=== PATIENT | female | born 1950 | race Two or more races ===

== ENCOUNTER → 2018-02-05 | Outpatient (CLI) | payer OTHER ==
[~2018-02-05] MED LIST: GILTUSS TR TAB1 EACH PO; METFORMIN HCL500 MG; SIMVASTATIN10 MG; SYNTHROID50 MCG
== END | disposition home or self-care (01) ==
LOC: LAB 09:21
DX: G90.3 Multi-system degeneration of the autonomic nervous system (principal); E03.8 Other specified hypothyroidism; E21.2 Other hyperparathyroidism

== ENCOUNTER 2018-02-19 08:51 | Outpatient (CLI) | payer OTHER | END 2018-02-19 08:59 | disposition home or self-care (01) | LOC: RAD 08:51 | DX: I11.9 Hypertensive heart disease without heart failure (principal); E11.8 Type 2 diabetes mellitus with unspecified complications; E05.10 Thyrotoxicosis with toxic single thyroid nodule without thyrotoxic crisis or storm; E78.4 Other hyperlipidemia; N39.0 Urinary tract infection, site not specified; Z12.11 Encounter for screening for malignant neoplasm of colon ==

== ENCOUNTER 2018-02-22 10:06 | Outpatient (CLI) | payer OTHER | END 2018-02-22 10:10 | disposition home or self-care (01) | LOC: LAB 10:06 | DX: I11.9 Hypertensive heart disease without heart failure (principal); E11.8 Type 2 diabetes mellitus with unspecified complications; E05.10 Thyrotoxicosis with toxic single thyroid nodule without thyrotoxic crisis or storm; E78.4 Other hyperlipidemia; N39.0 Urinary tract infection, site not specified; Z12.11 Encounter for screening for malignant neoplasm of colon ==

== ENCOUNTER 2018-02-26 08:20 | Outpatient (CLI) | payer OTHER | END 2018-02-26 08:33 | disposition home or self-care (01) | LOC: MAMO-SONO 08:20 | DX: Z12.31 Encounter for screening mammogram for malignant neoplasm of breast (principal); Z87.898 Personal history of other specified conditions; N60.29 Fibroadenosis of unspecified breast ==

== ENCOUNTER 2018-08-08 08:40 | Outpatient (CLI) | payer OTHER | END 2018-08-08 09:08 | disposition home or self-care (01) | LOC: RAD 08:40 → LAB 08:40 | DX: I11.9 Hypertensive heart disease without heart failure (principal); E11.8 Type 2 diabetes mellitus with unspecified complications; N39.0 Urinary tract infection, site not specified; M17.0 Bilateral primary osteoarthritis of knee; M18.0 Bilateral primary osteoarthritis of first carpometacarpal joints; E78.49 Other hyperlipidemia ==

== ENCOUNTER 2018-12-24 08:12 | Outpatient (CLI) | payer OTHER | END 2018-12-24 15:00 | disposition home or self-care (01) | LOC: LAB 08:12 | DX: I11.9 Hypertensive heart disease without heart failure (principal); E11.8 Type 2 diabetes mellitus with unspecified complications; E78.49 Other hyperlipidemia; E05.10 Thyrotoxicosis with toxic single thyroid nodule without thyrotoxic crisis or storm; N39.0 Urinary tract infection, site not specified; Z12.11 Encounter for screening for malignant neoplasm of colon ==

== ENCOUNTER 2018-12-25 10:20 | Outpatient (CLI) | payer OTHER | END 2018-12-25 13:01 | disposition home or self-care (01) | LOC: LAB 10:20 | DX: I11.9 Hypertensive heart disease without heart failure (principal); E11.8 Type 2 diabetes mellitus with unspecified complications; E05.10 Thyrotoxicosis with toxic single thyroid nodule without thyrotoxic crisis or storm; N39.0 Urinary tract infection, site not specified; Z12.11 Encounter for screening for malignant neoplasm of colon; E78.49 Other hyperlipidemia ==

== ENCOUNTER 2019-04-18 10:16 | Outpatient (CLI) | payer OTHER | END 2019-04-18 10:23 | disposition home or self-care (01) | LOC: NUCLEAR 10:16 | DX: R55 Syncope and collapse (principal) ==

== ENCOUNTER 2019-07-29 10:03 | Outpatient (CLI) | payer OTHER | END 2019-07-29 12:28 | disposition home or self-care (01) | LOC: LAB 10:03 | DX: I10 Essential (primary) hypertension (principal); E11.69 Type 2 diabetes mellitus with other specified complication; E78.49 Other hyperlipidemia; E03.1 Congenital hypothyroidism without goiter; N39.0 Urinary tract infection, site not specified ==

== ENCOUNTER 2019-08-07 07:16 | Outpatient (CLI) | payer OTHER | END 2019-08-07 07:21 | disposition home or self-care (01) | LOC: SONOGRAMA 07:16 → MAMO-SONO 07:45 | DX: E11.22 Type 2 diabetes mellitus with diabetic chronic kidney disease (principal) ==

== ENCOUNTER 2019-10-18 11:19 | Emergency (ER) | payer OTHER ==
[~2019-10-18] VITALS: Ht 160 cm; Wt 74.4 kg
== END 2019-10-18 17:39 | disposition home or self-care (01) ==
LOC: ER 11:19
DX: S01.121A Laceration with foreign body of right eyelid and periocular area, initial encounter (principal); R55 Syncope and collapse; W18.2XXA Fall in (into) shower or empty bathtub, initial encounter; Y93.E8 Activity, other personal hygiene; Y92.091 Bathroom in other non-institutional residence as the place of occurrence of the external cause; Y99.8 Other external cause status

== ENCOUNTER 2019-11-06 09:19 | Outpatient (CLI) | payer OTHER | END 2019-11-06 15:00 | disposition home or self-care (01) | LOC: LAB 09:19 | DX: I11.9 Hypertensive heart disease without heart failure (principal); E11.69 Type 2 diabetes mellitus with other specified complication; E78.49 Other hyperlipidemia; E05.10 Thyrotoxicosis with toxic single thyroid nodule without thyrotoxic crisis or storm; N39.0 Urinary tract infection, site not specified; Z12.11 Encounter for screening for malignant neoplasm of colon ==

== ENCOUNTER → 2020-04-13 10:30 | Outpatient (CLI) | payer OTHER | END | disposition home or self-care (01) | LOC: LAB 10:30 | PROVIDERS: ATTEND Psychiatry & Neurology Clinical Neurophysiology | DX: I95.1 Orthostatic hypotension (principal) ==

== ENCOUNTER 2020-07-13 11:00 | Outpatient (CLI) | payer OTHER | END 2020-07-13 11:02 | disposition home or self-care (01) | LOC: RAD 11:00 | PROVIDERS: ATTEND Internal Medicine | DX: M06.211 Rheumatoid bursitis, right shoulder (principal); I11.9 Hypertensive heart disease without heart failure ==

== ENCOUNTER 2020-11-04 06:24 | Outpatient (CLI) | payer OTHER | END 2020-11-04 06:33 | disposition home or self-care (01) | LOC: LAB 06:24 | PROVIDERS: ATTEND Internal Medicine | DX: I12.0 Hypertensive chronic kidney disease with stage 5 chronic kidney disease or end stage renal disease (principal); I10 Essential (primary) hypertension; E11.69 Type 2 diabetes mellitus with other specified complication; E78.89 Other lipoprotein metabolism disorders; E05.10 Thyrotoxicosis with toxic single thyroid nodule without thyrotoxic crisis or storm; N39.0 Urinary tract infection, site not specified; Z12.11 Encounter for screening for malignant neoplasm of colon ==

== ENCOUNTER 2020-11-05 07:16 | Outpatient (CLI) | payer OTHER | END 2020-11-05 15:00 | disposition home or self-care (01) | LOC: LAB 07:16 | PROVIDERS: ATTEND Internal Medicine | DX: I10 Essential (primary) hypertension (principal); N39.0 Urinary tract infection, site not specified; E11.69 Type 2 diabetes mellitus with other specified complication; E78.89 Other lipoprotein metabolism disorders; N39.8 Other specified disorders of urinary system; Z12.11 Encounter for screening for malignant neoplasm of colon; E05.10 Thyrotoxicosis with toxic single thyroid nodule without thyrotoxic crisis or storm ==

== ENCOUNTER 2020-11-17 08:19 | Outpatient (CLI) | payer OTHER | END 2020-11-17 08:21 | disposition home or self-care (01) | LOC: MAMO-SONO 08:19 | PROVIDERS: ATTEND Internal Medicine | DX: N60.01 Solitary cyst of right breast (principal); N64.4 Mastodynia; N64.59 Other signs and symptoms in breast ==

== ENCOUNTER 2020-12-14 10:46 | Outpatient (CLI) | payer OTHER | END 2020-12-14 10:51 | disposition home or self-care (01) | LOC: NUCLEAR 10:46 | PROVIDERS: ATTEND Internal Medicine | DX: M81.0 Age-related osteoporosis without current pathological fracture (principal) ==

== ENCOUNTER → 2021-05-17 10:04 | Outpatient (CLI) | payer OTHER | END | disposition home or self-care (01) | LOC: LAB 10:04 | PROVIDERS: ATTEND Internal Medicine | DX: G00-G99 Diseases of the nervous system (principal); I12.9 Hypertensive chronic kidney disease with stage 1 through stage 4 chronic kidney disease, or unspecified chronic kidney disease ==

== ENCOUNTER 2021-12-01 09:29 | Outpatient (CLI) | payer OTHER | END 2021-12-01 09:30 | disposition home or self-care (01) | LOC: LAB 09:29 | PROVIDERS: ATTEND Internal Medicine | DX: I12.9 Hypertensive chronic kidney disease with stage 1 through stage 4 chronic kidney disease, or unspecified chronic kidney disease (principal); N18.30 Chronic kidney disease, stage 3 unspecified ==

== ENCOUNTER 2021-12-29 09:10 | Outpatient (CLI) | payer OTHER | END 2021-12-29 09:11 | disposition home or self-care (01) | LOC: RAD 09:10 | PROVIDERS: ATTEND Internal Medicine | DX: I12.0 Hypertensive chronic kidney disease with stage 5 chronic kidney disease or end stage renal disease (principal); I12.9 Hypertensive chronic kidney disease with stage 1 through stage 4 chronic kidney disease, or unspecified chronic kidney disease; N18.30 Chronic kidney disease, stage 3 unspecified ==

== ENCOUNTER 2021-12-31 10:19 | Outpatient (CLI) | payer OTHER | END 2021-12-31 10:23 | disposition home or self-care (01) | LOC: LAB 10:19 | DX: I11.9 Hypertensive heart disease without heart failure (principal); E11.9 Type 2 diabetes mellitus without complications; E78.2 Mixed hyperlipidemia; E03.8 Other specified hypothyroidism; N39.0 Urinary tract infection, site not specified; Z12.11 Encounter for screening for malignant neoplasm of colon ==

== ENCOUNTER 2022-06-07 10:22 | Outpatient (CLI) | payer OTHER | END 2022-06-07 10:29 | disposition home or self-care (01) | LOC: LAB 10:22 | DX: I12.9 Hypertensive chronic kidney disease with stage 1 through stage 4 chronic kidney disease, or unspecified chronic kidney disease (principal); N18.30 Chronic kidney disease, stage 3 unspecified ==

== ENCOUNTER 2022-11-24 10:01 | Outpatient (CLI) | payer OTHER | END 2022-11-24 10:02 | disposition home or self-care (01) | LOC: LAB 10:01 | PROVIDERS: ATTEND Internal Medicine | DX: N18.30 Chronic kidney disease, stage 3 unspecified (principal); I12.9 Hypertensive chronic kidney disease with stage 1 through stage 4 chronic kidney disease, or unspecified chronic kidney disease; E03.8 Other specified hypothyroidism; R73.01 Impaired fasting glucose; Z12.11 Encounter for screening for malignant neoplasm of colon; R94.5 Abnormal results of liver function studies ==

== ENCOUNTER 2023-04-18 09:59 | Outpatient (CLI) | payer OTHER | END 2023-04-18 10:01 | disposition home or self-care (01) | LOC: LAB 09:59 | DX: E03.8 Other specified hypothyroidism (principal); E78.2 Mixed hyperlipidemia; E55.9 Vitamin D deficiency, unspecified; E11.65 Type 2 diabetes mellitus with hyperglycemia; N39.0 Urinary tract infection, site not specified; D50.9 Iron deficiency anemia, unspecified; R94.5 Abnormal results of liver function studies ==

== ENCOUNTER → 2023-10-26 13:57 | Outpatient (CLI) | payer OTHER ==
[2023-10-26 15:58] LABS: MYCOPLASMA PNEUMONIAE IGM NON REACTIVE (NO REACTIVE)
== END | disposition home or self-care (01) ==
LOC: LAB 13:57
DX: J42 Unspecified chronic bronchitis (principal)

== ENCOUNTER 2023-10-26 14:35 | Outpatient (CLI) | payer OTHER | END 2023-10-26 14:49 | disposition home or self-care (01) | LOC: RAD 14:35 | PROVIDERS: ATTEND Internal Medicine | DX: M19.049 Primary osteoarthritis, unspecified hand (principal) ==

== ENCOUNTER → 2023-12-13 10:12 | Outpatient (CLI) | payer OTHER ==
[2023-12-13 10:49] LABS: PH,URINE 6.5 (5.0-8.0); URINE APPEARANCE Clear; URINE BILIRRUBIN Negative (NEGATIVE); URINE BLOOD Negative; URINE COLOR Yellow; URINE GLUCOSE Negative (NEGATIVE); URINE LEUKOCYTE Negative; URINE NITRATE Negative; URINE PROTEIN Trace (NEGATIVE)
[2023-12-13 10:50] LABS: URINE BACTERIA 6.2 uL (0.0-1933); URINE RBC 3.4 uL (0.0-20.8); URINE WBC 1.8 uL (0.0-23.2)
[2023-12-13 11:08] LABS: HEMOGLOBIN 12.5 g/dL (12.0-15.00); MEAN CELL VOLUME 84.1 fL (80.00-100.00); MEAN CORPUSCULAR HEMOGLOBIN 28.4 pg (27.00-32.0); MEAN CORPUSCULAR HGB CONC 33.8 g/dl (32.0-36.0); PLATELET COUNT 208 K/uL (150-450); RED CELL DISTRIBUTION WIDTH 13.2 % (11.5-14.5)
[2023-12-13 11:44] LABS: ALBUMIN 4.2 gm/dL (3.4-5.0); BILIRUBIN TOTAL 1.14 mg/dL (0.3-1.2); CALCIUM 9.7 mg/dL (8.5-10.1); CHOL HDL RATIO 3.4 (0-5.0); CREATININE SERUM 1.13 mg/dL (0.55-1.02); GFR 47.47; GLOBULINA 2.8 G/DL (2.4-3.5); PHOSPHOROUS 3.2 mg/dL (2.5-4.9); POTASSIUM 4.2 mEq/L (3.5-5.1); T4 FREE 1.16 NG/ML (0.76-1.46); TSH 1.14 uIU/mL (0.358-3.74)
[2023-12-13 11:45] LABS: URIC ACID 4.5 mg/dL (2.5-7.5)
[2023-12-13 12:12] LABS: ob NEGATIVE (NEGATIVE)
== END | disposition home or self-care (01) ==
LOC: LAB 10:12
PROVIDERS: ATTEND Internal Medicine
DX: I10 Essential (primary) hypertension (principal); E03.8 Other specified hypothyroidism; E78.2 Mixed hyperlipidemia; E55.9 Vitamin D deficiency, unspecified; M81.0 Age-related osteoporosis without current pathological fracture; M85.89 Other specified disorders of bone density and structure, multiple sites; E11.65 Type 2 diabetes mellitus with hyperglycemia; R80.9 Proteinuria, unspecified; E11.22 Type 2 diabetes mellitus with diabetic chronic kidney disease; N39.0 Urinary tract infection, site not specified; D50.9 Iron deficiency anemia, unspecified; Z12.11 Encounter for screening for malignant neoplasm of colon; R94.5 Abnormal results of liver function studies

== ENCOUNTER 2024-04-09 07:54 | Outpatient (CLI) | payer OTHER | END 2024-04-09 08:03 | disposition home or self-care (01) | LOC: MAMO-SONO 07:54 | PROVIDERS: ATTEND Internal Medicine | DX: N64.4 Mastodynia (principal); Z12.31 Encounter for screening mammogram for malignant neoplasm of breast ==

== ENCOUNTER 2024-04-12 12:43 | Outpatient (CLI) | payer OTHER | END 2024-04-12 12:46 | disposition home or self-care (01) | LOC: NUCLEAR 12:43 | PROVIDERS: ATTEND Internal Medicine | DX: M81.0 Age-related osteoporosis without current pathological fracture (principal) ==

== ENCOUNTER 2024-06-12 09:16 | Outpatient (CLI) | payer OTHER ==
[2024-06-12 10:53] LABS: HEMATOCRIT 35.7 % (36.0-45.00); HEMOGLOBIN 11.9 g/dL (12.0-15.00); MEAN CELL VOLUME 83.6 fL (80.00-100.00); MEAN CORPUSCULAR HEMOGLOBIN 27.9 pg (27.00-32.0); MEAN CORPUSCULAR HGB CONC 33.4 g/dl (32.0-36.0); PLATELET COUNT 207 K/uL (150-450); RED BLOOD COUNT 4.26 M/uL (4.00-6.00); RED CELL DISTRIBUTION WIDTH 13.8 % (11.5-14.5)
[2024-06-12 11:09] LABS: URINE APPEARANCE Clear; URINE BILIRRUBIN Negative (NEGATIVE); URINE BLOOD Negative; URINE COLOR Dark Yellow; URINE GLUCOSE Negative (NEGATIVE); URINE KETONE Trace (NEGATIVE); URINE LEUKOCYTE Small; URINE NITRATE Negative; URINE PROTEIN 30 (NEGATIVE)
[2024-06-12 11:13] LABS: URINE BACTERIA 76.8 uL (0.0-1933); URINE CAST 3.51 uL (0.0-1.40); URINE EPITHELIAL CELLS 19.4 uL (0.0-38.8); URINE RBC 9.9 uL (0.0-20.8); URINE WBC 59.3 uL (0.0-23.2)
[2024-06-12 12:00] LABS: ALBUMIN 4.1 gm/dL (3.4-5.0); BILIRUBIN TOTAL 0.93 mg/dL (0.3-1.2); CALCIUM 9.2 mg/dL (8.5-10.1); CHOL HDL RATIO 3.3 (0-5.0); CREATININE SERUM 1.18 mg/dL (0.55-1.02); GFR 45.15; GLOBULINA 3.1 G/DL (2.4-3.5); PHOSPHOROUS 3.3 mg/dL (2.5-4.9); POTASSIUM 3.93 mEq/L (3.5-5.1); T4 FREE 1.17 NG/ML (0.76-1.46); TOTAL PROTEIN 7.2 gm/dL (6.4-8.2); TSH 0.723 uIU/mL (0.358-3.74)
== END 2024-06-12 10:23 | disposition home or self-care (01) ==
LOC: LAB 09:16
PROVIDERS: ATTEND Internal Medicine
DX: E03.8 Other specified hypothyroidism (principal); I10 Essential (primary) hypertension; E78.2 Mixed hyperlipidemia; E55.9 Vitamin D deficiency, unspecified; E11.65 Type 2 diabetes mellitus with hyperglycemia; E11.21 Type 2 diabetes mellitus with diabetic nephropathy; D50.9 Iron deficiency anemia, unspecified; N39.0 Urinary tract infection, site not specified; R94.5 Abnormal results of liver function studies; N18.32 Chronic kidney disease, stage 3b; I12.9 Hypertensive chronic kidney disease with stage 1 through stage 4 chronic kidney disease, or unspecified chronic kidney disease

== ENCOUNTER 2024-11-01 09:11 | Outpatient (CLI) | payer OTHER ==
[2024-11-01 10:21] LABS: HEMATOCRIT 36.6 % (36.0-45.00); HEMOGLOBIN 12.3 g/dL (12.0-15.00); MEAN CELL VOLUME 83.3 fL (80.00-100.00); MEAN CORPUSCULAR HGB CONC 33.5 g/dl (32.0-36.0); PLATELET COUNT 212 K/uL (150-450); RED BLOOD COUNT 4.39 M/uL (4.00-6.00); RED CELL DISTRIBUTION WIDTH 13.5 % (11.5-14.5)
[2024-11-01 10:35] LABS: PH,URINE 6.5 (5.0-8.0); URINE APPEARANCE Turbid; URINE BILIRRUBIN Small (NEGATIVE); URINE BLOOD Large; URINE COLOR Orange; URINE GLUCOSE Negative (NEGATIVE); URINE KETONE Negative (NEGATIVE); URINE LEUKOCYTE Large; URINE NITRATE Positive
[2024-11-01 10:39] LABS: URINE CAST 3.08 uL (0.0-1.40); URINE EPITHELIAL CELLS 11.3 uL (0.0-38.8)
[2024-11-01 10:47] LABS: URINE BACTERIA > 9821.5 uL (0.0-1933); URINE PROTEIN 300 (NEGATIVE); URINE RBC > 10558.9 uL (0.0-20.8); URINE WBC > 5548.3 uL (0.0-23.2)
[2024-11-01 11:26] LABS: CALCIUM 9.5 mg/dL (8.5-10.1); CHOL HDL RATIO 2.8 (0-5.0); CREATININE SERUM 1.35 mg/dL (0.55-1.02); GFR 38.66; PHOSPHOROUS 2.5 mg/dL (2.5-4.9)
== END 2024-11-01 09:12 | disposition home or self-care (01) ==
LOC: LAB 09:11
PROVIDERS: ATTEND Internal Medicine
DX: N18.30 Chronic kidney disease, stage 3 unspecified (principal); I12.9 Hypertensive chronic kidney disease with stage 1 through stage 4 chronic kidney disease, or unspecified chronic kidney disease

== ENCOUNTER 2024-11-01 17:07 | Emergency (ER) | payer OTHER ==
[~2024-11-01] VITALS: Ht 157.5 cm; Wt 63.5 kg
[2024-11-01] MEDS ORDERED: KETOROLAC TROMETHAMINE 30 MG VIAL ONE (21:45)
[2024-11-01 21:47] LABS: HEMATOCRIT 36.6 % (36.0-45.00); HEMOGLOBIN 11.9 g/dL (12.0-15.00); MEAN CELL VOLUME 84.9 fL (80.00-100.00); MEAN CORPUSCULAR HEMOGLOBIN 27.5 pg (27.00-32.0); MEAN CORPUSCULAR HGB CONC 32.4 g/dl (32.0-36.0); PLATELET COUNT 204 K/uL (150-450); RED BLOOD COUNT 4.31 M/uL (4.00-6.00); RED CELL DISTRIBUTION WIDTH 13.6 % (11.5-14.5)
[2024-11-01] MEDS ORDERED: KETOROLAC TROMETHAMINE 30 MG VIAL IM ONE (22:00)
[2024-11-01 22:02] LABS: PH,URINE 5.5 (5.0-8.0); URINE APPEARANCE Turbid; URINE BILIRRUBIN Negative (NEGATIVE); URINE BLOOD Large; URINE COLOR Yellow; URINE GLUCOSE Negative (NEGATIVE); URINE KETONE 15 (NEGATIVE); URINE LEUKOCYTE Large; URINE NITRATE Positive; URINE UROBILINOGEN 0.2 E.U./dl
[2024-11-01 22:05] LABS: URINE BACTERIA 6958.1 uL (0.0-1933); URINE CAST 1.47 uL (0.0-1.40); URINE RBC 298.7 uL (0.0-20.8); URINE WBC 4140.6 uL (0.0-23.2)
[2024-11-01 22:17] LABS: ALBUMIN 4.1 gm/dL (3.4-5.0); BILIRUBIN TOTAL 1.29 mg/dL (0.3-1.2); CALCIUM 9.5 mg/dL (8.5-10.1); CREATININE SERUM 1.9 mg/dL (0.55-1.02); GFR 26.06; POTASSIUM 3.7 mEq/L (3.5-5.1); TOTAL PROTEIN 7.1 gm/dL (6.4-8.2)
[2024-11-01 22:17] LABS: URINE PROTEIN 100 (NEGATIVE)
[2024-11-01] MEDS ORDERED: levoFLOXacin IN DEXTROSE 5 % 500MG/100ML PIGGYBAG IV ONE (23:29)
[2024-11-01] MEDS ORDERED: levoFLOXacin IN DEXTROSE 5 % 250MG/50ML PIGGYBAG IV ONE (23:30)
== END 2024-11-02 02:11 | disposition left against medical advice (07) ==
LOC: ER 17:10
PROVIDERS: Preventive Medicine Public Health & General Preventive Medicine
DX: N39.0 Urinary tract infection, site not specified (principal); N20.0 Calculus of kidney; E03.8 Other specified hypothyroidism; Z88.0 Allergy status to penicillin
CPT/HCPCS: 36415; 74176; 96365; 96372; 99284; J1885; J1956

== ENCOUNTER 2024-11-29 09:35 | Outpatient (CLI) | payer OTHER ==
[2024-11-29 12:33] LABS: PH,URINE 5.5 (5.0-8.0); URINE APPEARANCE Clear; URINE BACTERIA 18.3 uL (0.0-1933); URINE BILIRRUBIN Negative (NEGATIVE); URINE BLOOD Negative; URINE COLOR Yellow; URINE EPITHELIAL CELLS 3.3 uL (0.0-38.8); URINE GLUCOSE Negative (NEGATIVE); URINE KETONE Negative (NEGATIVE); URINE LEUKOCYTE Negative; URINE NITRATE Negative; URINE PROTEIN Negative (NEGATIVE); URINE RBC 6.6 uL (0.0-20.8); URINE UROBILINOGEN 0.2 E.U./dl; URINE WBC 1.8 uL (0.0-23.2)
[2024-11-29 12:44] LABS: HEMATOCRIT 35.5 % (36.0-45.00); MEAN CELL VOLUME 83.7 fL (80.00-100.00); MEAN CORPUSCULAR HEMOGLOBIN 28.3 pg (27.00-32.0); MEAN CORPUSCULAR HGB CONC 33.9 g/dl (32.0-36.0); PLATELET COUNT 196 K/uL (150-450); RED BLOOD COUNT 4.24 M/uL (4.00-6.00); RED CELL DISTRIBUTION WIDTH 13.8 % (11.5-14.5)
[2024-11-29 12:52] LABS: CREATININE URINE RANDOM 57.8 MG/DL (30-125)
[2024-11-29 12:58] LABS: URINE CAST 0.44 uL (0.0-1.40)
[2024-11-29 13:18] LABS: CALCIUM 9.3 mg/dL (8.5-10.1); CREATININE SERUM 1.05 mg/dL (0.55-1.02); GFR 51.52; PHOSPHOROUS 2.8 mg/dL (2.5-4.9); POTASSIUM 4.51 mEq/L (3.5-5.1)
[2024-11-29 13:23] LABS: URIC ACID 4.3 mg/dL (2.5-7.5)
== END 2024-11-29 09:40 | disposition home or self-care (01) ==
LOC: LAB 09:35
PROVIDERS: ATTEND Internal Medicine
DX: N18.30 Chronic kidney disease, stage 3 unspecified (principal); I12.9 Hypertensive chronic kidney disease with stage 1 through stage 4 chronic kidney disease, or unspecified chronic kidney disease

== ENCOUNTER 2025-02-24 09:29 | Outpatient (CLI) | payer OTHER ==
[2025-02-24 10:10] LABS: BASO % 0.4 % (0.1-1.2); EOS % 2.9 % (0.7-7.0); HEMATOCRIT 34.6 % (34.1-44.9); HEMOGLOBIN 11.3 g/dL (11.2-15.7); LYMPH # 1.48 (1.18-3.74); LYMPH % 21.5 % (19.3-53.1); MEAN CORPUSCULAR HEMOGLOBIN 27.5 pg (25.6-32.2); MONO # 0.72 (0.24-0.82); MONO % 10.5 % (4.7-12.5); NEUT # 4.42 (1.56-6.13); NEUT % 64.3 % (34.0-71.1); PLATELET COUNT 210 K/uL (163-369); RED BLOOD COUNT 4.11 M/uL (3.93-5.22); RED CELL DISTRIBUTION WIDTH 13.3 % (11.6-14.4)
[2025-02-24 10:55] LABS: ALBUMIN 3.9 gm/dL (3.4-5.0); BILIRUBIN TOTAL 0.64 mg/dL (0.3-1.2); CHOL HDL RATIO 2.7 (0-5.0); CREATININE SERUM 1.17 mg/dL (0.55-1.02); GFR 45.47; GLOBULINA 3.1 G/DL (2.4-3.5); POTASSIUM 4.26 mEq/L (3.5-5.1); T4 TOTAL 7.76 UG/DL (4.8-13.9); TSH 0.986 uIU/mL (0.358-3.74)
[2025-02-24 11:29] LABS: URINE APPEARANCE Clear; URINE BILIRRUBIN Negative (NEGATIVE); URINE BLOOD Negative; URINE COLOR Yellow; URINE GLUCOSE Negative (NEGATIVE); URINE KETONE Trace (NEGATIVE); URINE LEUKOCYTE Trace; URINE NITRATE Negative; URINE PROTEIN 30 (NEGATIVE)
[2025-02-24 11:30] LABS: URINE BACTERIA 12.2 uL (0.0-1933); URINE CAST 1.76 uL (0.0-1.40); URINE EPITHELIAL CELLS 8.6 uL (0.0-38.8); URINE RBC 6.4 uL (0.0-20.8); URINE WBC 4.2 uL (0.0-23.2)
== END 2025-02-24 13:10 | disposition home or self-care (01) ==
LOC: LAB 09:29
PROVIDERS: ATTEND Internal Medicine
DX: I10 Essential (primary) hypertension (principal); E03.8 Other specified hypothyroidism; E78.2 Mixed hyperlipidemia; E55.9 Vitamin D deficiency, unspecified; E11.65 Type 2 diabetes mellitus with hyperglycemia; R80.9 Proteinuria, unspecified; N39.0 Urinary tract infection, site not specified; D50.9 Iron deficiency anemia, unspecified; R94.5 Abnormal results of liver function studies

== ENCOUNTER 2025-03-04 10:47 | Outpatient (CLI) | payer OTHER | END 2025-03-04 10:51 | disposition home or self-care (01) | LOC: RAD 10:47 | PROVIDERS: ATTEND Internal Medicine | DX: I10 Essential (primary) hypertension (principal); R00.8 Other abnormalities of heart beat; I27.9 Pulmonary heart disease, unspecified; Z13.83 Encounter for screening for respiratory disorder NEC ==

== ENCOUNTER 2025-05-15 10:06 | Outpatient (CLI) | payer OTHER ==
[2025-05-15 10:36] LABS: BASO % 0.4 % (0.1-1.2); EOS # 0.16 (0.04-0.54); EOS % 1.9 % (0.7-7.0); LYMPH # 1.47 (1.18-3.74); LYMPH % 17.6 % (19.3-53.1); MEAN PLATELET VOLUME 10.70 fl (9.4-12.4); MONO # 0.83 (0.24-0.82); MONO % 10.0 % (4.7-12.5); NEUT # 5.82 (1.56-6.13); NEUT % 69.9 % (34.0-71.1); RED CELL DISTRIBUTION WIDTH 13.1 % (11.6-14.4)
[2025-05-15 11:14] LABS: BUN CREA RATIO 13.0 (7.0-25.0); CHOL HDL RATIO 3.0 (0-5.0); CREATININE SERUM 1.22 mg/dL (0.55-1.02); GFR 43.33; GLUCOSE FASTING 95.0 mg/dL (65-100); HDL 43.0 mg/dl (40-60); LDL 60.0 mg/dl (0-130); OSMOLALITY SERUM 277.0 MOSM/KG (275-295); VLDL 26.0 (0-39)
[2025-05-15 12:52] LABS: URINE APPEARANCE Clear; URINE BILIRRUBIN Negative (NEGATIVE); URINE BLOOD Negative; URINE COLOR Yellow; URINE GLUCOSE Negative (NEGATIVE); URINE KETONE Trace (NEGATIVE); URINE LEUKOCYTE Negative; URINE NITRATE Negative; URINE PROTEIN Negative (NEGATIVE); URINE UROBILINOGEN 1.0 E.U./dl
[2025-05-15 12:53] LABS: URINE BACTERIA 10.7 uL (0.0-1933); URINE EPITHELIAL CELLS 5.3 uL (0.0-38.8); URINE RBC 2.9 uL (0.0-20.8)
[2025-05-15 13:06] LABS: CREATININE URINE RANDOM 199.0 MG/DL (30-125)
[2025-05-15 13:18] LABS: URINE CAST 0.87 uL (0.0-1.40); URINE WBC 1.3 uL (0.0-23.2)
== END 2025-05-15 10:15 | disposition home or self-care (01) ==
LOC: LAB 10:06
PROVIDERS: ATTEND Internal Medicine
DX: N18.30 Chronic kidney disease, stage 3 unspecified (principal); I12.9 Hypertensive chronic kidney disease with stage 1 through stage 4 chronic kidney disease, or unspecified chronic kidney disease